=== PATIENT | female | born 1990 | race Two or more races ===

== ENCOUNTER → 2024-05-18 | Outpatient (CLI) | payer MEDICAID, SELFPAY ==
--- NOTE | 2024-05-18 10:15 | XR_ITS ---
EXAMINATION: PET/CT FUSION SKULL TO THIGH EXAM DATE AND TIME: May 18, 2024 at 1044 hours INDICATIONS: Diagnosis thyroid carcinoma post treatment CTDI:vol (mGy) 4.08 DLP: (mGycm) 424 PROCEDURE: 16 mCi FDG was administered intravenously To allow for distribution and uptake of radiotracer, the patient was allowed to rest quietly in a shielded room. Imaging was performed on an integrated 16-slice PET/CT scanner, with scanning from the skull base to the mid thigh. Serum blood glucose at the time of the injection was measured 88 mg/dL. CT scanning was performed without oral or intravenous contrast material. FINDINGS: Head and Neck: Hypermetabolic areas, each 12 mm in the thyroid bed Chest: There is no brit hypermetabolism in the chest. There are no pulmonary nodules. Abdomen and Pelvis: There is no brit hypermetabolism in retroperitoneal or pelvic chains. The spleen is normal in size and FDG avidity. Musculoskeletal: Marrow uptake is within normal range. IMPRESSION: Weakly hypermetabolic areas in the thyroid head bilaterally I have no information as to history of thyroidectomy, recommend ultrasound soft tissue thyroid follow-up
== END | disposition home or self-care (01) ==
PROVIDERS: Referring Provider Student in an Organized Health Care Education/Training Program; Visit Provider Student in an Organized Health Care Education/Training Program
DX: C73 Malignant neoplasm of thyroid gland (principal)
CPT/HCPCS: 78815; A9552